=== PATIENT | female | born 1970 | race Caucasian/White ===

== ENCOUNTER 2016-05-29 07:22 | Emergency (ER) | payer BC ==
--- NOTE | 2016-05-29 18:34 | ER ---
ADMIT: 05/29/2016 RM/LOC: ER [facility] MR#: [id number] [facility] [address] [place], [place] [id number] LUCY CONNOR [facility] [address] [place] [address] Emergency Room Report SEX: F AGE: 45 : 1970 DATE: 05/29/2016 ADDENDUM: A 45-year-old white female with Crohn's disease, coming in just with weakness. No fever, nausea, or vomiting. CBC and chemistry were negative. She does take thyroid. She says that has not changed. She has had that checked recently as well. Only thing that is new that has been added is Lexapro. She says she does not tolerate this. I said, we are going to hold Lexapro and then she is going to follow up with her doctor this week. CONDITION ON DISCHARGE: Fair. Jhoan Hawley MD/ marva JOB #: [id number] CC: Jhoan Hawley MD, Attending Physician
== END 2016-05-29 09:19 | disposition home or self-care (01) ==
LOC: ER 07:22
DX: K50.90 Crohn's disease, unspecified, without complications (principal); T43.225A Adverse effect of selective serotonin reuptake inhibitors, initial encounter; R53.1 Weakness; F17.210 Nicotine dependence, cigarettes, uncomplicated; Z88.8 Allergy status to other drugs, medicaments and biological substances; Z79.899 Other long term (current) drug therapy